=== PATIENT | male | born 1990 | race Caucasian/White ===

== ENCOUNTER 2020-01-19 11:13 | Inpatient (IN) | payer OTHER, SELFPAY ==
[2020-01-19] VITALS (13 sets, daily range): BP systolic 131–160; BP diastolic 65–107; PULSE 62–91; RESP 14–18; TEMP 36.3–37.3; O2SAT 95–100; BMI 22.4; BMI 22.9; BMI 23.0
--- NOTE | 2020-01-19 11:38 | CT_ITS ---
STUDY: CT ABDOMEN AND PELVIS WITH CONTRAST REASON FOR EXAM: Male, 29 years old. RLQ PAIN, [place], N/V, STARTED AT 10 AM YESTERDAY, PREV SHUNT IN BRAIN RADIATION DOSAGE (If Supplied By Facility): CTDIvol = ( 9.81 ) mGy, DLP = ( 609.68 ) mGycm TECHNIQUE: Transaxial images were obtained from the dome of the diaphragm to the symphysis pubis without oral contrast. Oral and amp; IV Gastrografin and amp; 100mL Isovue-300 was administered. Sagittal and coronal images were reconstructed. Individualized dose optimization techniques were used for this CT. COMPARISON: None. FINDINGS: The visualized lung bases are unremarkable. The visualized portions of the heart are within normal limits. Normal liver. Normal gallbladder and extrahepatic biliary system. Normal spleen. Normal pancreas. Normal bilateral adrenal glands. Normal right kidney. Normal left kidney. There is a small hiatal hernia. Normal small intestine. Normal colon. There is a tubular, thick-walled appendix (>7mm), consistent with acute appendicitis. Small amount of fluid is seen in the pelvis as well as a inflammatory changes are seen within the pelvis with the right side. Small lymph nodes are also seen within the mesentery in the right lower quadrant in keeping with mesenteric adenitis. Normal abdominal aorta. Normal inferior vena cava. Normal retroperitoneum. Normal urinary bladder. Normal abdominal wall. Normal osseous structures. CT/Abdomen/Pelvis WITH Contrast IMPRESSION: Findings in keeping with acute appendicitis and inflammatory changes in the pelvic fat wires on the right side. Electronically Signed: Barrington Lubin, at 13:50 EDT , Service support ,
[2020-01-19] MEDS: 0.9% Normal Saline 1,000 ML 1000 ML IV (11:57)
[2020-01-19] MEDS: Ketorolac 15 MG/ML Vial IV (11:58)
[2020-01-19] MEDS: Ondansetron 4 MG/2 ML Vial IV (11:58)
[2020-01-19 12:22] LABS: Absolute Lymphocyte Count 0.82 X10^3/uL (0.83-4.51); Absolute Neutrophil Count 6.1 X10^3/uL (2.0-7.7); Basophil# 0.02 X10^3/uL; Basophil% 0.3 % (0-1); Eosinophil# 0.01 X10^3/uL; Eosinophils% 0.1 % (0-5); Hematocrit 45.7 % (40-54); Hemoglobin 15.6 g/dL (13.0-16.5); Lymphocyte # 0.82 X10^3/ul (4.0); Mean Corp Hgb Conc 34.1 g/dL (32-36); Mean Corpuscular Hgb 29.1 pg (27.0-32.0); Mean Corpuscular Volume 85.3 fL (80-94); Mean Platelet Vol. 9.7 fl (6.2-12.0); Monocyte# 0.54 X10^3/uL; Monocyte% 7.2 % (0-10); NRBC Flagged by Analyzer 0 % (0-5); Neutrophil # 6.06 X10^3/uL (2.7-7.7); Platelet Count 225 K/mm3 (150-450); RBC Distribution Width CV 12.8 % (11.6-14.6); RBC Distribution Width SD 38.8 fl (35.1-43.9); Red Blood Count 5.36 M/mm3 (4.6-6.2); White Blood Count 7.5 K/mm3 (4.4-11.0)
[2020-01-19 12:23] LABS: Anion Gap 5 (5-15); BUN 14 mg/dL (7-18); BUN/Creat Ratio 13.2 RATIO (10-20); Calcium,Total 9.8 mg/dL (8.5-10.1); Chloride 98 mmol/L (98-107); Creatinine, Serum 1.06 mg/dL (0.70-1.30); EST Glomerular Filtration Rate 87 mL/min (>60); Est Glom Filt Rate - Afr Amer 106 mL/min (>60); Glucose 95 mg/dL (74-106); Potassium 3.8 mmol/L (3.5-5.1); Sodium Level 138 mmol/L (136-145)
--- NOTE | 2020-01-19 12:26 | ED.VIS.GEN ---
History of Present Illness Chief Complaint: Abd Pain Informant: Patient Onset: Yesterday Context: Sudden Onset Timing: Continuous Quality: Right lower quadrant and infraumbilical, pain Location: RLQ and infraumbilical Current Severity: Mild Maximum Severity: Moderate Worsened by: Nothing specific Relieved by: Nothing Associated Symptoms: Loss of appetite with nausea and vomiting Narrative: Patient is 29-year-old male presents with abdominal pain that started yesterday. He states the pain is located to the right lower quad infraumbilical area. This is associate with nausea vomiting loss of appetite. Is not had anything to eat for breakfast. This is unusual. He denies any ill contacts. He denies dysuria, frequency, urgency or hematuria. He denies diarrhea. He denies constipation. He denies hematemesis or coffee-ground emesis.. Prior similar symptoms: No Recent Illness/Hospitalization: No - Past Medical History (1) No significant past medical history Status: Acute Past Medical History - Allergies and Home Meds Allergies/Adverse Reactions: Allergies No Known Allergies Allergy (Verified 01/19/20 11:16) Primary Care Physician: Kan Lee MD [Primary Care Provider] - Past Medical History: None Surgical History: no surgical history Lives: Alone Smoking Status: Former smoker Alcohol: Rare Drugs: None Review of Systems General: Denies: Chills, Fever, Sweats Eyes: Denies: Visual changes - bilaterally, Blurred Vision - bilaterally, Diplopia ENT: Denies: Bilateral ear pain, Rhinorrhea, Sore throat Cardiovascular: Denies: Chest pain, Palpitations Respiratory: Denies: Dyspnea, Cough, Dyspnea on exertion Gastrointestinal: Reports: Abdominal pain, Nausea, Vomiting, - - Anorexia. Denies: Diarrhea, Constipation, Melena, Hematochezia, - Genitourinary: Denies: Dysuria, Hematuria, Frequency Musculoskeletal: Denies: Myalgias, Arthralgias, Neck pain, Back pain, Swelling, Extremity Pain Skin: Denies: Rash, Wounds Neurological: Denies: Headache, Weakness, Numbness Endocrine: Denies: Polyuria, Polydipsia Physical Exam Vital Signs/Narrative: Vital Signs Temp Pulse Resp BP Pulse Ox 01/19/20 11:14 97.8 F 77 18 138/107 H 97 Inital Vital Signs reviewed: Yes General: Well nourished, Well developed, No Acute Distress Head: Normocephalic, Atraumatic Eyes: Perrl, EOMI. Negative for: Pale conjunctiva, Scleral icterus ENT: No rhinorrhea, Dry mucous membranes Neck: Supple, Nontender, No lymphadenopathy, No JVD Cardiovascular: Regular rate, Regular rhythm, No murmurs, Normal S1, Normal S2 Respiratory: No distress, CTA bilaterally, Chest nontender Abdomen: Soft, Nondistended, No masses, Tender, Guarding, Rebound tenderness, Hypoactive bowel sounds, - - Is over McBurney's point.. Negative for: Nontender, Normal bowel sounds, Hepatomegaly, Splenomegaly, Mass, Pulsatile mass, Ventral hernia, Umbilical hernia Rectal: Deferred Back: Nontender, Normal Inspection Extremities: Nontender, No edema Skin: Normal color, No rash Neurological: Alert, Oriented x3, Cranial nerves II-XII grossly intact, Normal Strength, Normal Sensation Psychological: Normal affect, Normal Mood Diagnostic/Tx/Re-eval Impressions Abdomen/Pelvis CT 01/19/20 11:38 IMPRESSION: Findings in keeping with acute appendicitis and inflammatory changes in the pelvic fat wires on the right side. Electronically Signed: Barrington Lubin, at 13:50 EDT , Service support , 01/19/20 11:38 Abdomen/Pelvis WITH Contrast [CT] Stat Laboratory Results 01/19/20 01/19/20 11:55 11:55 WBC 7.5 RBC 5.36 Hgb 15.6 Hct 45.7 MCV 85.3 MCH 29.1 MCHC 34.1 RDW Std Deviation 38.8 RDW Coeff of Kusum 12.8 Plt Count 225 MPV 9.7 Immature Gran % (Auto) 0.400 Neut % (Auto) 81.0 H Lymph % (Auto) 11.0 L [place] % (Auto) 7.2 Eos % (Auto) 0.1 Baso % (Auto) 0.3 Absolute Neuts (auto) 6.1 Absolute Lymphs (auto) 0.82 L Nucleated RBC % 0 Sodium 138 Potassium 3.8 Chloride 98 Carbon Dioxide 35.0 H Anion Gap 5 BUN 14 Creatinine 1.06 Estim Creat Clear Calc 118.10 Est GFR (MDRD) Af Amer 106 Est GFR (MDRD) Non-Af 87 BUN/Creatinine Ratio 13.2 Glucose 95 Calcium 9.8 Patient has acute appendicitis. He received dose of Zosyn since he has focal peritonitis. He does not require COVID testing. - Medical Decision Making Right lower quadrant pain loss of appetite need to evaluate for appendicitis versus mesenteric adenitis versus regional enteritis. Appropriate blood work was obtained and CT of the abdomen/pelvis with p.o. and IV contrast. Case was discussed with Dr. Farhat Almanza. He will see patient in preop center. ED Disposition - Plan for ED Patient: Disposition: Acute Care Hospital [facility] Diagnosis: Acute appendicitis with localized peritonitis Referrals: Kan Lee MD [Primary Care Provider] -
[2020-01-19] MEDS: Morphine 4 MG/ML Syringe IV (14:21)
--- NOTE | 2020-01-19 14:21 | NURSING ---
MED SURG ACUTE APPENDICITIS WITH LOCALIZED PERITONITIS CURT
--- NOTE | 2020-01-19 14:22 | NURSING ---
SURGERY THEN 321
--- NOTE | 2020-01-19 15:14 | ED.RN ---
ed pre surg checklist complete. report given to ac rn. pt to ac via bed per ted fung.
--- NOTE | 2020-01-19 15:17 | HP.PCM_ITS ---
Problem List (1) Acute appendicitis Status: Acute Qualifiers: Acute appendicitis type: unspecified acute appendicitis type Qualified Code(s): K35.80 - Unspecified acute appendicitis History of Present Illness Date of Admission: 01/19/20 The patient is a 29 year old M who presented to the emergency room with right lower quadrant pain and nausea vomiting. Patient says the pain started yesterday. He says it started in his umbilical area and migrated to the right lower quadrant. Past Medical History Allergies No Known Allergies Allergy (Verified 01/19/20 11:16) Home Medications: Ambulatory Orders Medication Instructions Recorded Calcium Carbonate [Tums] 2,000 mg PO Q4H PRN PRN 01/19/20 Cetirizine HCl [Zyrtec] 10 mg PO DAILY 01/19/20 Hydrochlorothiazide [Hctz] 25 mg PO DAILY 01/19/20 Ibuprofen [Advil] 200 mg PO DAILY PRN PRN 01/19/20 Simethicone [Gas Relief] 125 mg PO DAILY PRN PRN 01/19/20 Surgical History: no surgical history Lives: Alone Smoking Status: Former smoker Tobacco Use: Cigarettes Alcohol: Rare Drugs: None - *Family History Maternal History Items: No pertinent history Review of Systems Constitutional: Denies: Anorexia, Fever Respiratory: Denies: Cough Gastrointestinal: Reports: Abdominal Pain, Nausea, Vomiting Genitourinary: Denies: Dysuria Musculoskeletal: Denies: Arm Pain Skin: Denies: Jaundice Neurological: Denies: Balance problems Hematologic/ Lymphatic: Denies: Anemia VTE Information - Inpt Only VTE Present on Admission: No VTE Mechan Device Prophylaxis: SCD's Patient Problems: Active and Suspected Problems No significant past medical history (Acute) Acute appendicitis with localized peritonitis (Acute) Acute appendicitis (Acute) - Physical Exam Vitals/I&O's: Vital Signs Temp Pulse Resp BP Pulse Ox 99.0 F 62 16 139/74 H 100 01/19/20 14:34 01/19/20 14:34 01/19/20 14:34 01/19/20 14:34 01/19/20 14:34 Oxygen Delivery Method Room Air Weight: 179 lb 0.246 oz Body Mass Index (BMI) 22.4 Intake and Output for Last 24 Hours 01/17/20 01/18/20 01/19/20 23:59 23:59 23:59 Intake Total 1000 / 1000 Balance 1000 / 1000 General: Alert, Oriented x3 Neck: No JVD Lungs: Normal air movement Cardiovascular: Regular rate, Regular Rhythm Abdomen: Soft, Non-Distended, Tender - Tender right lower quadrant Laboratory Results 01/19/20 11:55: WBC 7.5, RBC 5.36, Hgb 15.6, Hct 45.7, MCV 85.3, MCH 29.1, MCHC 34.1, RDW Std Deviation 38.8, RDW Coeff of Kusum 12.8, Plt Count 225, MPV 9.7, Immature Gran % (Auto) 0.400, Neut % (Auto) 81.0 H, Lymph % (Auto) 11.0 L, [place] % (Auto) 7.2, Eos % (Auto) 0.1, Baso % (Auto) 0.3, Absolute Neuts (auto) 6.1, Absolute Lymphs (auto) 0.82 L, Nucleated RBC % 0 01/19/20 11:55: Sodium 138, Potassium 3.8, Chloride 98, Carbon Dioxide 35.0 H, Anion Gap 5, BUN 14, Creatinine 1.06, Estim Creat Clear Calc 118.10, Est GFR (MDRD) Af Amer 106, Est GFR (MDRD) Non-Af 87, BUN/Creatinine Ratio 13.2, Glucose 95, Calcium 9.8 Assessment/Plan All Active Problems No significant past medical history (Acute) Acute appendicitis with localized peritonitis (Acute) Acute appendicitis (Acute) 29-year-old male with acute appendicitis 1. Patient has right lower quadrant pain and nausea and vomiting. Patient CT scan showed acute appendicitis. I described mesenteric adenitis is versus acute appendicitis to the patient. I discussed laparoscopy with appendectomy. I informed him that if he did have normal appendix with mesenteric adenitis I would still remove his appendix during surgery. I discussed the surgery in detail including the risks of bleeding, infection, injury to other organs. Patient understands the risks and is willing to proceed with surgery. Patient had antibiotics in the emergency room. Farhat Almanza MD Pager: [facility] [address] [place] [address], [address] [place] [address] Office:
[2020-01-19] MEDS: 0.9% Normal Saline 1,000 ML 100 ML IV ×2 (15:19→18:41)
--- NOTE | 2020-01-19 15:30 | APP_PTH ---
PATIENT: MARIA DE JESUS HUGHES LOC: MS3 U#:[id number] AGE/SX: 29/M ROOM: MS321 RE01/19/[address]: Dr. Farhat Almanza MD : 1990 BED: 1 DIS: 01/22/2020 SPEC #: [id number] RECD: 01/20/20 07:45 STATUS: TERRENCE RETed #: [id number] ANTHONY: 01/19/20 15:[address]: Farhat Almanza DEPT: SURGICAL PATHOLOGY RECD BY: Parker Landers ENTERED: 01/20/20 08:05 SP TYPE: APPENDIX OTHR DR: Dr. Kan Lee MD Tissues: Appendix, NOS Procedures: Surgery Specimen Level III HEADER OPERATION: Laparoscopic appendectomy PRE-OP DIAGNOSIS: Acute appendicitis TISSUE SUBMITTED: Appendix MICROSCOPIC DIAGNOSIS Appendix, appendectomy: Early acute appendicitis. AM:leonie 01/21/20 MICROSCOPIC DESCRIPTION Slides are reviewed. GROSS DESCRIPTION Received is one container labeled with the patient's name and designated appendix. The specimen consists of an L-shaped appendix measuring 7.5 cm in length and up to 0.9 cm in diameter. The attached periappendiceal adipose tissue measures up to 1.5 cm in width. The serosal surface is congested. No obvious perforation is identified. The lumen contains small amount of hemorrhagic fluid. No fecalith is identified. Environmental Programs Specialist sections are submitted in one cassette. / SJ:leonie 01/20/20 TC:2 CPT: 65558
[2020-01-19] MEDS: Lactated Ringers 1,000 ML 100 ML IV (16:15)
[2020-01-19] MEDS: Bupiv/Epi 0.25% 30 ML Vial (17:31)
--- NOTE | 2020-01-19 18:04 | OP.PCM_ITS ---
Problem List (1) Acute appendicitis Status: Acute Qualifiers: Acute appendicitis type: unspecified acute appendicitis type Qualified Code(s): K35.80 - Unspecified acute appendicitis Report of Operation Date of Procedure: 01/19/20 Pre-Operative Diagnosis: Acute appendicitis Post-Operative Diagnosis: Acute appendicitis and extensive adhesions Surgery/Procedure Performed:: Laparoscopic converted open appendectomy Specimen's removed: Appendix Description of Procedure: Patient was brought back to the operating room and general anesthesia was induced. The abdomen was prepped and draped in usual sterile fashion. An incision was made superior to the umbilicus and deepened to the fascia. The fascia was elevated and incised. There appeared to be extensive adhesions to small bowel just below the fascia. A balloon port was placed into the abdomen and insufflated. The abdomen was inspected and there were adhesions surrounding the port site. Using the camera soft flimsy adhesions directly inferior to the port site were taken down until there was a small area in the inferior midline that a 5 mm port was able to be placed into under direct visualization. Next using atraumatic graspers some of the soft adhesions were taken down. I was unable to fully take down the adhesions laparoscopically and the decision was made to convert to an open surgery. Some of the adhesions were very dense. Next an incision was made from the 5 mm port midline incision to just below the umbilicus. The incision was taken down to the fascia and the fascia was incised. The fascia was elevated and using a finger below the peritoneum the peritoneum was incised as well. The adhesions were taken down sharply from the anterior abdominal wall on both sides of the midline. Next the dissection was carried to the right lower quadrant until the appendix was identified. The appendix was grasped and elevated. A small window was made in the mesoappendix and Enseal was used to take down the mesoappendix. The appendiceal artery was identified and tied off using a 3-0 Vicryl tie. Next a stapler was used to take the appendix at its base. The staple line appeared to have some oozing and was reinforced with 3-0 silk sutures. The area was irrigated and suctioned dry. It was hemostatic with no leaking or bleeding. The abdomen was inspected and the area around the supraumbilical port site was freed of adhesions. There were 2 areas of denuded small bowel. The serosa on these 2 segments of bowel was dany pproximated using interrupted 3-0 silk sutures. Next the fascia at the supraumbilical port site was closed with [id number] 0 Vicryl suture. Next the midline fascia was closed with a running #1 PDS suture starting from the top and bottom meeting in the middle. The subcutaneous tissue was irrigated and suctioned dry and the skin was injected with local anesthetic. The skin was stapled closed and dressings were applied. Patient was awoken and taken to PACU in stable condition. - Admit VTE Documentation VTE Mechan Device Prophylaxis: SCD's
[2020-01-19] MEDS: Morphine 2 MG/ML Syringe IV ×2 (19:56→21:59)
[2020-01-19] MEDS: Acetaminophen 325 MG Tablet 650 MG PO (21:36)
[2020-01-19] MEDS: 0.9% Saline Lock 10 ML Syringe IV (21:59)
[2020-01-20] MEDS: Morphine 2 MG/ML Syringe IV ×5 (00:10→21:45)
[2020-01-20] MEDS: 0.9% Saline Lock 10 ML Syringe IV ×5 (00:10→16:01)
--- NOTE | 2020-01-20 00:10 | NURSING ---
this rn and trip follower daphne assisted pt to sit on edge of bed and then ambulate one lap in [place]. pt [facility]
[2020-01-20] MEDS: 0.9% Normal Saline 1,000 ML 100 ML IV ×3 (01:41→21:45)
[2020-01-20 02:12] VITALS: BP 129/74; PULSE 65; RESP 14; TEMP 37; O2SAT 98
[2020-01-20] MEDS: Morphine 4 MG/ML Syringe IV ×5 (02:13→16:20)
[2020-01-20 06:13] LABS: Absolute Neutrophil Count 6.7 X10^3/uL (2.0-7.7); Basophil# 0.01 X10^3/uL; Basophil% 0.1 % (0-1); Hematocrit 35.1 % (40-54); Hemoglobin 11.7 g/dL (13.0-16.5); Lymphocyte % 11.7 % (19-41); Mean Corp Hgb Conc 33.3 g/dL (32-36); Mean Corpuscular Volume 87.1 fL (80-94); Mean Platelet Vol. 9.3 fl (6.2-12.0); Monocyte# 0.83 X10^3/uL; Monocyte% 9.7 % (0-10); NRBC Flagged by Analyzer 0 % (0-5); Neutrophil # 6.65 X10^3/uL (2.7-7.7); Neutrophil % 78.1 % (47-70); Platelet Count 172 K/mm3 (150-450); RBC Distribution Width CV 12.6 % (11.6-14.6); Red Blood Count 4.03 M/mm3 (4.6-6.2); White Blood Count 8.5 K/mm3 (4.4-11.0)
[2020-01-20 06:52] LABS: Anion Gap 7 (5-15); BUN 11 mg/dL (7-18); BUN/Creat Ratio 12.5 RATIO (10-20); Calcium,Total 8.1 mg/dL (8.5-10.1); Chloride 109 mmol/L (98-107); Creatinine, Serum 0.88 mg/dL (0.70-1.30); EST Glomerular Filtration Rate 109 mL/min (>60); Est Glom Filt Rate - Afr Amer 132 mL/min (>60); Estimated Creatinine Clearance 145.93 ml/min; Glucose 96 mg/dL (74-106); Sodium Level 142 mmol/L (136-145)
--- NOTE | 2020-01-20 07:32 | PCM.PN.SRG ---
Patient Problems: Active and Suspected Problems No significant past medical history (Acute) Acute appendicitis with localized peritonitis (Acute) Acute appendicitis (Acute) Subjective: Patient has not passing flatus yet. No nausea or vomiting overnight. He says his pain worsened a few hours ago but it was okay until then. - Physical Exam Vitals/I&O's: Vital Signs Temp Pulse Resp BP Pulse Ox 98.6 F 65 14 129/74 H 98 01/20/20 02:12 01/20/20 02:12 01/20/20 02:12 01/20/20 02:12 01/20/20 02:12 Oxygen Flow Rate (L/min) 2 Oxygen Delivery Method Room Air Weight: 183 lb 10.321 oz Body Mass Index (BMI) 22.9 Intake and Output for Last 24 Hours 01/18/20 01/19/20 01/20/20 23:59 23:59 23:59 Intake Total 3100 / 3220 1060 / 1060 Output Total 850 / 850 Balance 3100 / 2770 210 / 210 General: Alert, Oriented x3 Lungs: Normal air movement Abdomen: Soft, Non-Distended, Tender - Diffuse tenderness Laboratory Results 01/19/20 11:55: WBC 7.5, RBC 5.36, Hgb 15.6, Hct 45.7, MCV 85.3, MCH 29.1, MCHC 34.1, RDW Std Deviation 38.8, RDW Coeff of Kusum 12.8, Plt Count 225, MPV 9.7, Immature Gran % (Auto) 0.400, Neut % (Auto) 81.0 H, Lymph % (Auto) 11.0 L, [place] % (Auto) 7.2, Eos % (Auto) 0.1, Baso % (Auto) 0.3, Absolute Neuts (auto) 6.1, Absolute Lymphs (auto) 0.82 L, Nucleated RBC % 0 01/19/20 11:55: Sodium 138, Potassium 3.8, Chloride 98, Carbon Dioxide 35.0 H, Anion Gap 5, BUN 14, Creatinine 1.06, Estim Creat Clear Calc 118.10, Est GFR (MDRD) Af Amer 106, Est GFR (MDRD) Non-Af 87, BUN/Creatinine Ratio 13.2, Glucose 95, Calcium 9.8 01/20/20 06:06: WBC 8.5, RBC 4.03 L, Hgb 11.7 L, Hct 35.1 L, MCV 87.1, MCH 29.0, MCHC 33.3, RDW Std Deviation 40.0, RDW Coeff of Kusum 12.6, Plt Count 172, MPV 9.3, Immature Gran % (Auto) 0.400, Neut % (Auto) 78.1 H, Lymph % (Auto) 11.7 L, [place] % (Auto) 9.7, Eos % (Auto) 0.0, Baso % (Auto) 0.1, Absolute Neuts (auto) 6.7, Absolute Lymphs (auto) 1.00, Nucleated RBC % 0 01/20/20 06:06: Sodium 142, Potassium 4.0, Chloride 109 H, Carbon Dioxide 26.0, Anion Gap 7, BUN 11, Creatinine 0.88, Estim Creat Clear Calc 145.93, Est GFR (MDRD) Af Amer 132, Est GFR (MDRD) Non-Af 109, BUN/Creatinine Ratio 12.5, Glucose 96, Calcium 8.1 L Current Medications Acetaminophen (Tylenol) 650 mg PO Q4H PRN PRN PRN Reason: Pain or Fever Last Admin: 01/19/20 21:36 Dose: 650 mg Documented by: Hydrochlorothiazide (Hctz) 25 mg PO DAILY [facility] Sodium Chloride () 1,000 mls @ 100 mls/hr IV .Q10H THIEN Last Admin: 01/20/20 01:41 Dose: 100 mls/hr Documented by: Sodium Chloride () 250 mls @ 15 mls/hr IV .[id number] PRN PRN Reason: Saline Flush Sodium Chloride () 250 mls @ 15 mls/hr IV .[id number] PRN PRN Reason: Additional IVPB Infusion Loratadine (Claritin) 10 mg PO DAILY [facility] Morphine Sulfate () 2 - 4 mg IV Q2H PRN PRN PRN Reason: Pain Score 4-1010 Last Admin: 01/20/20 06:35 Dose: 4 mg Documented by: Morphine Sulfate () 2 - 4 mg IV Q2H PRN PRN PRN Reason: Pain Score 4-1010 Last Admin: 01/20/20 02:13 Dose: 4 mg Documented by: Ondansetron HCl (Zofran) 4 mg IV Q6H PRN PRN PRN Reason: NAUSEA/VOMITING Sodium Chloride () 10 - 40 ml IV UD PRN PRN Reason: SALINE FLUSH Last Admin: 01/20/20 06:35 Dose: 10 ml Documented by: Medical Necessity - Tobacco Use Smoking Status: Former smoker Tobacco Use: Cigarettes Assessment/Plan All Active Problems No significant past medical history (Acute) Acute appendicitis with localized peritonitis (Acute) Acute appendicitis (Acute) 29-year-old male status post open appendectomy 1. Patient is doing well this morning. Continue sips and chips until passing flatus. Encourage ambulation and incentive spirometer. Continue pain control. Farhat Almanza MD Pager: [facility] [address] [place] [address], [address] [place] [address] Office:
[2020-01-20 09:11] VITALS: BP 137/85; PULSE 70; RESP 18; TEMP 36.7; O2SAT 99
[2020-01-20] MEDS: hydroCHLOROthiazide 25 MG Tablet PO (09:25)
[2020-01-20] MEDS: Loratadine 10 MG Tablet PO (09:25)
[2020-01-20 11:45] VITALS: BP 139/85; PULSE 78; RESP 18; TEMP 36.7; O2SAT 100
[2020-01-20 14:26] VITALS: BP 131/77; PULSE 66; RESP 16; TEMP 36.6; O2SAT 100
[2020-01-20] MEDS: Ketorolac 15 MG/ML Vial IV (16:00)
[2020-01-20 16:24] VITALS: BP 140/89; PULSE 65; RESP 16; TEMP 36.6; O2SAT 96
[2020-01-20 19:49] VITALS: BP 134/82; PULSE 62; RESP 16; TEMP 36.6; O2SAT 100
[2020-01-21] MEDS: Ketorolac 15 MG/ML Vial IV ×3 (00:01→16:53)
[2020-01-21] MEDS: Morphine 2 MG/ML Syringe IV ×2 (03:29→06:06)
[2020-01-21 03:36] VITALS: BP 112/68; PULSE 57; RESP 16; TEMP 36.6; O2SAT 100
--- NOTE | 2020-01-21 07:48 | PCM.PN.SRG ---
Patient Problems: Active and Suspected Problems No significant past medical history (Acute) Acute appendicitis with localized peritonitis (Acute) Acute appendicitis (Acute) Subjective: Patient is still complaining of pain and he is not passing any gas yet. No nausea or vomiting. - Physical Exam Vitals/I&O's: Vital Signs Temp Pulse Resp BP Pulse Ox 97.9 F 57 L 16 112/68 100 01/21/20 03:36 01/21/20 03:36 01/21/20 03:36 01/21/20 03:36 01/21/20 03:36 Oxygen Flow Rate (L/min) 2 Oxygen Delivery Method Room Air Weight: 183 lb 10.321 oz Body Mass Index (BMI) 22.9 Intake and Output for Last 24 Hours 01/19/20 01/20/20 01/21/20 23:59 23:59 23:59 Intake Total 3100 / 3220 3125 / 3125 60 / 60 Output Total 1750 / 1750 Balance 3100 / 2770 1375 / 1375 60 / 60 General: Alert, Oriented x3 Lungs: Normal air movement Abdomen: Soft, Non-Distended, Tender Current Medications Acetaminophen (Tylenol) 650 mg PO Q4H PRN PRN PRN Reason: Pain or Fever Last Admin: 01/19/20 21:36 Dose: 650 mg Documented by: Hydrochlorothiazide (Hctz) 25 mg PO DAILY [facility] Last Admin: 01/20/20 09:25 Dose: 25 mg Documented by: Sodium Chloride () 1,000 mls @ 100 mls/hr IV .Q10H [facility] Last Admin: 01/20/20 21:45 Dose: 100 mls/hr Documented by: Sodium Chloride () 250 mls @ 15 mls/hr IV .[id number] PRN PRN Reason: Saline Flush Sodium Chloride () 250 mls @ 15 mls/hr IV .[id number] PRN PRN Reason: Additional IVPB Infusion Ketorolac Tromethamine (Toradol (Bkc)) 15 mg IV Q8H PRN PRN PRN Reason: Pain Score 4-10/10 Stop: 01/25/20 15:49 Last Admin: 01/21/20 00:01 Dose: 15 mg Documented by: Loratadine (Claritin) 10 mg PO DAILY [facility] Last Admin: 01/20/20 09:25 Dose: 10 mg Documented by: Morphine Sulfate () 2 - 4 mg IV Q2H PRN PRN PRN Reason: Pain Score 4-10/10 Last Admin: 01/21/20 06:06 Dose: 2 mg Documented by: Morphine Sulfate () 2 - 4 mg IV Q2H PRN PRN PRN Reason: Pain Score 4-10/10 Last Admin: 01/20/20 16:20 Dose: 4 mg Documented by: Ondansetron HCl (Zofran) 4 mg IV Q6H PRN PRN PRN Reason: NAUSEA/VOMITING Sodium Chloride () 10 - 40 ml IV UD PRN PRN Reason: SALINE FLUSH Last Admin: 01/20/20 16:01 Dose: 10 ml Documented by: Medical Necessity - Tobacco Use Smoking Status: Former smoker Tobacco Use: Cigarettes Assessment/Plan All Active Problems No significant past medical history (Acute) Acute appendicitis with localized peritonitis (Acute) Acute appendicitis (Acute) 29-year-old male status post open appendectomy 1. The patient is still having abdominal pain. He is not having any distention but he is not passing gas yet. Continue sips and chips until he starts passing flatus. I have added Toradol and the patient says that there has been a decrease in his pain. Once the patient starts passing flatus I will advance his diet and start oral pain medications. Labs pending. Farhat Almanza MD Pager: [facility] [address] [place] [address], [address] [place] [address] Office:
[2020-01-21] MEDS: 0.9% Normal Saline 1,000 ML 100 ML IV ×2 (07:50→16:53)
[2020-01-21] MEDS: Acetaminophen 325 MG Tablet 650 MG PO ×3 (07:51→20:16)
[2020-01-21 07:52] VITALS: BP 149/83; PULSE 59; RESP 16; TEMP 36.7; O2SAT 100
[2020-01-21 08:05] LABS: Absolute Lymphocyte Count 1.37 X10^3/uL (0.83-4.51); Absolute Neutrophil Count 4.5 X10^3/uL (2.0-7.7); Basophil# 0.01 X10^3/uL; Basophil% 0.2 % (0-1); Eosinophil# 0.02 X10^3/uL; Eosinophils% 0.3 % (0-5); Hematocrit 34.9 % (40-54); Hemoglobin 11.7 g/dL (13.0-16.5); Lymphocyte # 1.37 X10^3/ul (4.0); Mean Corp Hgb Conc 33.5 g/dL (32-36); Mean Corpuscular Hgb 29.8 pg (27.0-32.0); Mean Platelet Vol. 9.2 fl (6.2-12.0); Monocyte# 0.62 X10^3/uL; Monocyte% 9.5 % (0-10); NRBC Flagged by Analyzer 0 % (0-5); Neutrophil # 4.48 X10^3/uL (2.7-7.7); Neutrophil % 68.7 % (47-70); Platelet Count 153 K/mm3 (150-450); RBC Distribution Width CV 12.6 % (11.6-14.6); RBC Distribution Width SD 41.4 fl (35.1-43.9); Red Blood Count 3.92 M/mm3 (4.6-6.2); White Blood Count 6.5 K/mm3 (4.4-11.0)
[2020-01-21 08:18] LABS: Anion Gap 4 (5-15); BUN 12 mg/dL (7-18); BUN/Creat Ratio 13.7 RATIO (10-20); Calcium,Total 8.5 mg/dL (8.5-10.1); Chloride 109 mmol/L (98-107); Creatinine, Serum 0.87 mg/dL (0.70-1.30); EST Glomerular Filtration Rate 109 mL/min (>60); Est Glom Filt Rate - Afr Amer 132 mL/min (>60); Estimated Creatinine Clearance 147.61 ml/min; Glucose 81 mg/dL (74-106); Potassium 3.4 mmol/L (3.5-5.1); Sodium Level 143 mmol/L (136-145)
[2020-01-21] MEDS: Pantoprazole Sodium 20 MG Tablet PO (09:47)
[2020-01-21] MEDS: hydroCHLOROthiazide 25 MG Tablet PO (09:47)
[2020-01-21] MEDS: Loratadine 10 MG Tablet PO (09:47)
--- NOTE | 2020-01-21 11:40 | CASEMGMT ---
SABRINA JACOBS Face to Face with patient for initial transition planning/care coordination assessment. RN REYNALDO introduced self and role at [facility]. Patient lying in bed, alert and oriented. Patient willing to participate in assessment and is able to answer all questions appropriately. Care providers, pharmacy, and demographics verified. Patient wishes to discharge home, denies need for home health at this time. Patient states he has no further needs or concerns at this time. CM to follow for discharge planning needs that may arise. PCP: Jesus Specialists: none Preferred Pharmacy: [facility] Insurance: MMO Prescription Benefit: yes Living Will/HPOA: none LNOK: Living Arrangements: Patient lives with in a 1 story home with 3 steps and railing to enter the home. Patient is independent at home. Transportation: self/ DME/HHC: Patient denies DME Disposition Plan: Patient to discharge home with family support and follow-up plans in place. Geneva DAVENPORT, RN, CM
[2020-01-21 13:56] VITALS: BP 149/84; PULSE 55; RESP 16; TEMP 36.7; O2SAT 99
[2020-01-21 16:59] VITALS: BP 143/80; PULSE 52; RESP 16; TEMP 36.7; O2SAT 100
[2020-01-21 20:15] VITALS: BP 147/90; PULSE 52; RESP 18; TEMP 36.7; O2SAT 99
[2020-01-22] MEDS: 0.9% Normal Saline 1,000 ML 100 ML IV (02:04)
[2020-01-22] MEDS: Ketorolac 15 MG/ML Vial IV (02:04)
[2020-01-22 02:12] VITALS: BP 140/89; PULSE 50; RESP 16; TEMP 36.4; O2SAT 100
[2020-01-22 06:13] LABS: Absolute Neutrophil Count 3.2 X10^3/uL (2.0-7.7); Basophil# 0.01 X10^3/uL; Basophil% 0.2 % (0-1); Eosinophil# 0.07 X10^3/uL; Eosinophils% 1.4 % (0-5); Hematocrit 32.8 % (40-54); Hemoglobin 11.1 g/dL (13.0-16.5); Lymphocyte % 22.8 % (19-41); Mean Corp Hgb Conc 33.8 g/dL (32-36); Mean Corpuscular Hgb 29.4 pg (27.0-32.0); Mean Corpuscular Volume 86.8 fL (80-94); Mean Platelet Vol. 9.1 fl (6.2-12.0); Monocyte# 0.41 X10^3/uL; Monocyte% 8.5 % (0-10); NRBC Flagged by Analyzer 0 % (0-5); Neutrophil # 3.23 X10^3/uL (2.7-7.7); Neutrophil % 66.9 % (47-70); Platelet Count 153 K/mm3 (150-450); RBC Distribution Width SD 38.5 fl (35.1-43.9); Red Blood Count 3.78 M/mm3 (4.6-6.2); White Blood Count 4.8 K/mm3 (4.4-11.0)
[2020-01-22 06:52] LABS: Anion Gap 4 (5-15); BUN 11 mg/dL (7-18); BUN/Creat Ratio 15.6 RATIO (10-20); Calcium,Total 8.4 mg/dL (8.5-10.1); Chloride 108 mmol/L (98-107); Creatinine, Serum 0.71 mg/dL (0.70-1.30); EST Glomerular Filtration Rate 140 mL/min (>60); Est Glom Filt Rate - Afr Amer 169 mL/min (>60); Estimated Creatinine Clearance 180.87 ml/min; Glucose 78 mg/dL (74-106); Potassium 3.5 mmol/L (3.5-5.1); Sodium Level 142 mmol/L (136-145)
--- NOTE | 2020-01-22 08:11 | PN.SURG_ITS ---
Patient Problems: Active and Suspected Problems No significant past medical history (Acute) Acute appendicitis with localized peritonitis (Acute) Acute appendicitis (Acute) Subjective: Patient is doing well today and started passing gas. He is tolerating clear liquids no nausea or vomiting. - Physical Exam Vitals/I&O's: Vital Signs Temp Pulse Resp BP Pulse Ox 97.6 F L 50 L 16 140/89 H 100 01/22/20 02:12 01/22/20 02:12 01/22/20 02:12 01/22/20 02:12 01/22/20 02:12 Oxygen Flow Rate (L/min) 2 Oxygen Delivery Method Room Air Weight: 183 lb 10.321 oz Body Mass Index (BMI) 22.9 Intake and Output for Last 24 Hours 01/20/20 01/21/20 01/22/20 23:59 23:59 23:59 Intake Total 3125 / 3125 2795 / 2795 1156.67 / 1156.67 Output Total 1750 / 1750 Balance 1375 / 1375 2795 / 2795 1156.67 / 1156.67 General: Alert, Oriented x3 Neck: No JVD Cardiovascular: Regular rate, Regular Rhythm Abdomen: Soft, Non-Distended Laboratory Results 01/21/20 07:58: Sodium 143, Potassium 3.4 L, Chloride 109 H, Carbon Dioxide 30.0, Anion Gap 4 L, BUN 12, Creatinine 0.87, Estim Creat Clear Calc 147.61, Est GFR (MDRD) Af Amer 132, Est GFR (MDRD) Non-Af 109, BUN/Creatinine Ratio 13.7, Glucose 81, Calcium 8.5 01/22/20 06:07: WBC 4.8, RBC 3.78 L, Hgb 11.1 L, Hct 32.8 L, MCV 86.8, MCH 29.4, MCHC 33.8, RDW Std Deviation 38.5, RDW Coeff of [place] 12.0, Plt Count 153, MPV 9.1, Immature Gran % (Auto) 0.200, Neut % (Auto) 66.9, Lymph % (Auto) 22.8, [place] % (Auto) 8.5, Eos % (Auto) 1.4, Baso % (Auto) 0.2, Absolute Neuts (auto) 3.2, Absolute Lymphs (auto) 1.10, Nucleated RBC % 0 01/22/20 06:07: Sodium 142, Potassium 3.5, Chloride 108 H, Carbon Dioxide 30.0, Anion Gap 4 L, BUN 11, Creatinine 0.71, Estim Creat Clear Calc 180.87, Est GFR (MDRD) Af Amer 169, Est GFR (MDRD) Non-Af 140, BUN/Creatinine Ratio 15.6, Glucose 78, Calcium 8.4 L Current Medications Acetaminophen (Tylenol) 650 mg PO Q4H PRN PRN PRN Reason: Pain or Fever Last Admin: 01/21/20 20:16 Dose: 650 mg Documented by: Hydrochlorothiazide (Hctz) 25 mg PO DAILY [facility] Last Admin: 01/21/20 09:47 Dose: 25 mg Documented by: Sodium Chloride () 250 mls @ 15 mls/hr IV .[id number] PRN PRN Reason: Saline Flush Sodium Chloride () 250 mls @ 15 mls/hr IV .[id number] PRN PRN Reason: Additional IVPB Infusion Loratadine (Claritin) 10 mg PO DAILY [facility] Last Admin: 01/21/20 09:47 Dose: 10 mg Documented by: Morphine Sulfate () 2 - 4 mg IV Q2H PRN PRN PRN Reason: Pain Score 4-10/10 Last Admin: 01/21/20 06:06 Dose: 2 mg Documented by: Morphine Sulfate () 2 - 4 mg IV Q2H PRN PRN PRN Reason: Pain Score 4-10/10 Last Admin: 01/20/20 16:20 Dose: 4 mg Documented by: Ondansetron HCl (Zofran) 4 mg IV Q6H PRN PRN PRN Reason: NAUSEA/VOMITING Pantoprazole Sodium (Protonix) 20 mg PO DAILY [facility] Last Admin: 01/21/20 09:47 Dose: 20 mg Documented by: Sodium Chloride () 10 - 40 ml IV UD PRN PRN Reason: SALINE FLUSH Last Admin: 01/20/20 16:01 Dose: 10 ml Documented by: Medical Necessity - Tobacco Use Smoking Status: Former smoker Tobacco Use: Cigarettes Assessment/Plan All Active Problems No significant past medical history (Acute) Acute appendicitis with localized peritonitis (Acute) Acute appendicitis (Acute) 29-year-old male status post open appendectomy 1. Patient is doing well today. He is passing flatus and tolerating clear liquids. I will advance him to a regular diet and start some oral pain medication if he tolerates this he can go home today. Farhat Almanza MD Pager: [facility] [address] [place] [address], [address] [place] [phone] Office:
--- NOTE | 2020-01-22 08:15 | PCM.DC.APPY ---
Discharge Diet: Light diet - advance as tolerated Discharge Activity: May Shower Lifting Restrictions: 20 lbs for 4 weeks Call your doctor if your incision/area has: Continuous Slow Oozing, Sudden Increased Bleeding, Increased Pain/ Swelling, Increased Redness, Foul Smelling Discharge Call your doctor if you observe: Fever of 101 or Higher Suture Line Care: Avoid Pulling/Pushing, Avoid Pinching/Bending Additional Dressing/Incision Instructions:: Keep dressing clean and dry. Change or remove dressing in 2 days. Leave steri strips for 1 week. May protect with a gauze bandaid. Medications to take at Discharge Calcium Carbonate [Tums] 2,000 mg PO Q4H PRN PRN 01/19/20 Cetirizine HCl [Zyrtec] 10 mg PO DAILY 01/19/20 Hydrochlorothiazide [Hctz] 25 mg PO DAILY 01/19/20 Ibuprofen [Advil] 200 mg PO DAILY PRN PRN 01/19/20 Simethicone [Gas Relief] 125 mg PO DAILY PRN PRN 01/19/20 Acetaminophen [Tylenol Tablet] 650 mg PO Q4H PRN PRN tablet 01/22/20 Ibuprofen [Motrin] 600 mg PO Q6H PRN PRN tablet 01/22/20 traMADol [Ultram] 50 mg PO Q6H PRN PRN 5 Days #20 tablet 01/22/20 Allergies/Adverse Reactions: Allergies No Known Allergies Allergy (Verified 01/19/20 15:18) The following prescriptions were given: traMADol [Ultram] 50 mg PO Q6H PRN PRN 5 Days #20 tablet PRN Reason: Pain Score 4-10/10 Transmission Status: Sent to [facility] Test Results: Test results from this visit will be discussed in further detail at your follow-up appointment, if applicable. Please Follow Up With: Farhat Almanza MD When: Please call to schedule 1 week follow up appointment. [phone]
[2020-01-22 08:27] VITALS: BP 148/91; PULSE 53; RESP 16; TEMP 36.4; O2SAT 100
[2020-01-22] MEDS: Pantoprazole Sodium 20 MG Tablet PO (08:31)
[2020-01-22] MEDS: Loratadine 10 MG Tablet PO (08:31)
[2020-01-22] MEDS: hydroCHLOROthiazide 25 MG Tablet PO (08:31)
[2020-01-22] MEDS: traMADol 50 MG Tablet PO (09:23)
--- NOTE | 2020-01-26 08:23 | PCM.DC.SUM ---
Discharge Date and Diagnosis Date of Admission: 01/19/20 Date of Discharge: 01/22/20 Hospital Course and Treatment Imaging Results: Clinical Impression(s) from Imaging Studies Abdomen/Pelvis CT 01/19/20 11:38 IMPRESSION: Findings in keeping with acute appendicitis and inflammatory changes in the pelvic fat wires on the right side. Electronically Signed: Barrington Lubin, at 13:50 EDT , Service support , Operations: appendectomy Procedures: None Summary of Care Provided: The patient is a 29 year old M who presented with abdominal pain. CT scan showed appendicitis. The patient had laparoscopic converted to open appendectomy. Patient was brought to the floor postoperatively and kept n.p.o. until he started to have bowel function. Once he had bowel function and started on a clear liquid diet and advance diet. Once he tolerated regular diet he was discharged home in stable condition. - Physical Exam Vitals/I&O's: Vital Signs Temp Pulse Resp BP Pulse Ox 97.6 F L 53 L 16 148/91 H 100 01/22/20 08:27 01/22/20 08:27 01/22/20 08:27 01/22/20 08:27 01/22/20 08:27 Oxygen Flow Rate (L/min) 2 Oxygen Delivery Method Room Air Weight: 183 lb 10.321 oz Body Mass Index (BMI) 22.9 Discharge Diet: Light diet - advance as tolerated Discharge Activity: May Shower Call your doctor if your incision/area has: Continuous Slow Oozing, Sudden Increased Bleeding, Increased Pain/ Swelling, Increased Redness, Foul Smelling Discharge Call your doctor if you observe: Fever of 101 or Higher Suture Line Care: Avoid Pulling/Pushing, Avoid Pinching/Bending Additional Dressing/Incision Instructions:: Keep dressing clean and dry. Change or remove dressing in 2 days. Leave steri strips for 1 week. May protect with a gauze bandaid. Home Medications: Medications to take at Discharge Calcium Carbonate [Tums] 2,000 mg PO Q4H PRN PRN 01/19/20 Cetirizine HCl [Zyrtec] 10 mg PO DAILY 01/19/20 Hydrochlorothiazide [Hctz] 25 mg PO DAILY 01/19/20 Ibuprofen [Advil] 200 mg PO DAILY PRN PRN 01/19/20 Simethicone [Gas Relief] 125 mg PO DAILY PRN PRN 01/19/20 Acetaminophen [Tylenol Tablet] 650 mg PO Q4H PRN PRN tab 01/22/20 Ibuprofen [Motrin] 600 mg PO Q6H PRN PRN tab 01/22/20 traMADol [Ultram] 50 mg PO Q6H PRN PRN 5 Days #20 tab 01/22/20 Following Prescriptions Were Given to Patient: traMADol [Ultram] 50 mg PO Q6H PRN PRN 5 Days #20 tab PRN Reason: Pain Score 4-03/20 Transmission Status: Received by [facility] Primary Care Physician: Kan Lee MD [Primary Care Provider] - Please Follow Up With: Farhat Almanza MD When: Please call to schedule 1 week follow up appointment. [phone] Medical Necessity - Tobacco Use Smoking Status: Former smoker Tobacco Use: Cigarettes Meaningful Use Info Meaningful Use Diagnoses (Choose all that apply): None applicable
== END 2020-01-22 10:14 | disposition home or self-care (01) | DRG 343 ==
LOC: ED 14:21 → SDC 14:23 → MS3 14:24 → SDC 14:29 → MS3 14:48
PROVIDERS: Admitting Provider Surgery; Emergency Provider Emergency Medicine; PCP Family Medicine; Visit Provider Surgery
PROC: 0DTJ4ZZ Resection of Appendix, Percutaneous Endoscopic Approach (ICD-10-PCS; CPT 44970; principal; 2020-01-19 15:10)
DX: K35.30 Acute appendicitis with localized peritonitis, without perforation or gangrene (principal); K66.0 Peritoneal adhesions (postprocedural) (postinfection); Z53.31 Laparoscopic surgical procedure converted to open procedure; Z87.891 Personal history of nicotine dependence
CPT/HCPCS: 36415; 74177; 80048; 85025; 88304; 90471; 99251; 99284; 99406; J7030; J7120; Q9967; A4216; C1760; G0463; J2405